=== PATIENT | female | born 1975 | race Asian ===

== ENCOUNTER 2020-03-07 18:39 | Emergency (ER) | payer OTHER ==
[2020-03-07 18:49] VITALS: Ht 165.1 cm
[2020-03-07 19:47] VITALS: BP 116/97
== END 2020-03-07 19:47 | disposition home or self-care (01) ==
LOC: ED 18:39
DX: S61.213A Laceration without foreign body of left middle finger without damage to nail, initial encounter (principal); Z88.8 Allergy status to other drugs, medicaments and biological substances; X58.XXXA Exposure to other specified factors, initial encounter; Y93.89 Activity, other specified; Y92.89 Other specified places as the place of occurrence of the external cause; Y99.8 Other external cause status
CPT/HCPCS: 90715